=== PATIENT | female | born 1970 ===

== ENCOUNTER → 2023-07-30 13:34 | Outpatient (CLI) | payer BC, SELFPAY ==
--- NOTE | ~2023-07-30 | MR_ITS ---
EXAMINATION: MR knee LT wo con DATE: 07/30/2023 14:16 INDICATION: Left knee pain TECHNIQUE: Magnetic resonance imaging (MRI) of the left knee was performed without intravenous contra st. Sequences included coronal PD-weighted FSE, coronal PD-weighted FS FSE, sagittal T2-weighted FSE , sagittal PD-weighted FS FSE and axial PD weighted fat saturated FSE. COMPARISON: None. FINDINGS: Medial compartment: There is medial extrusion of the medial meniscal body with longitudinal horizontal tear affecting fro m the meniscal body into the posterior horn. There is partial thickness chondral ulceration along the anterior weightbearing medial femoral condyle without degenerative subchondral changes. Lateral compartment: Lateral meniscus is normal. Additional partial thickness chondral ulceration along the medial aspect of the lateral tibial plateau along the shoulder the intercondylar eminence. Patellofemoral compartment: There is a deep chondral fissure along the lateral margin of the lateral trochlea with underlying eulalia ear fluid signal consistent with delamination at or near the bone chondral interface. Small deep mary dral fissure at the central aspect of the patellar apical ridge. Ligaments and tendons: Posterior cruciate ligament is normal. Tear the anterior cruciate ligament which is laxity-appearing, bowed posteriorly and with an intrasubstance ganglion cyst. The proximal medial collateral ligament with linear fluid signal extending proximal to distal within the ligament consistent with partial tear. The fibular collateral ligament is normal. The extensor me chanism is normal. The visualized medial and lateral hamstring tendons as well as the iliotibial band are normal. Fluid: Large left knee joint effusion. There is some synovitis along the posterior margin of Hoffa's fat pad and in the suprapatellar pouch. No loose osteochondral bodies identified. Osseous/other: Small bone island at the posterior lateral femoral condyle. There is cystic change at the intercondyl ar eminence which appears to arise near the posterior footplate of the anterior cruciate ligament. No fracture or pathologic marrow replacing process. IMPRESSION: 1. Tear, likely complete of the anterior cruciate ligament. 2. Partial tear/moderate grade sprain of the medial collateral ligament. 3. Longitudinal horizontal tear of the body and posterior horn of the medial meniscus. 4. 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 5. Large knee joint effusion. Reviewed, dictated and finalized at location [facility]. [facility] IMPRESSION: 1. Tear, likely complete of the anterior cruciate ligament. 2. Partial tear/moderate grade sprain of the medial collateral ligament. 3. Longitudinal horizontal tear of the body and posterior horn of the medial me niscus. 4. 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 5. Large knee joint effusion.
== END ==
PROVIDERS: PCP Orthopaedic Surgery; Visit Provider Orthopaedic Surgery
DX: S83.512A Sprain of anterior cruciate ligament of left knee, initial encounter (principal); S83.412A Sprain of medial collateral ligament of left knee, initial encounter; S83.242A Other tear of medial meniscus, current injury, left knee, initial encounter; X58.XXXA Exposure to other specified factors, initial encounter; M17.12 Unilateral primary osteoarthritis, left knee; M25.462 Effusion, left knee
CPT/HCPCS: 73721